=== PATIENT | female | born 1980 | race Caucasian/White ===

== ENCOUNTER 2016-11-20 23:32 | Inpatient (IN) | payer SELFPAY ==
[~2016-11-20] VITALS: Ht 157.5 cm; Wt 47.7 kg
[~2016-11-20 23:32] MED LIST: ALPR1TAB2 PO; BIOT25004 PO; BUPR1FIL SL; CLON1TAB PO; DICL50TA2 PO; DISU250T2 PO; FISH OIL PO; IBUP800T PO; LYSI500T11 PO; MULT-516 PO; NORCO PO; OXYC-302 PO; PROBIOTIC PO
[2016-11-21] MEDS ORDERED: NALOXONE 1 MG/ML, 2ML IVPush ONE (00:30)
[2016-11-21] MEDS ORDERED: SODIUM CHLORIDE 0.9% 1,000ML IVBOLUS ONE (00:30)
[2016-11-21 01:23] LABS: BLOOD UREA NITROGEN 14 mg/dL (7-18)
[2016-11-21 01:24] LABS: ACETAMINOPHEN < 2 mcg/mL (10-30)
[2016-11-21] MEDS ORDERED: POTASSIUM CHLORIDE 20 MEQ, MAGNESIUM SULFATE 2 GM, THIAMINE 100 MG, MVI ADULT 10 ML, FO... IV SCH (01:45)
[2016-11-21] MEDS ORDERED: ACETAMINOPHEN 325 MG TABLET PO PRN (02:00)
[2016-11-21] MEDS ORDERED: ONDANSETRON 2MG/ML, 2ML IVPush PRN (02:00)
[2016-11-21 02:08] LABS: DAU SCREEN DISCLAIMER
[2016-11-21] MEDS ORDERED: ENOXAPARIN 40 MG/0.4 ML ONE (02:25)
[2016-11-21] MEDS ORDERED: NS + 20MEQ KCL 1,000 ML IV ONE (02:25)
[2016-11-21] MEDS: ENOXAPARIN 40 MG/0.4 ML SQ SCH (02:29)
[2016-11-21] MEDS: NS + 20MEQ KCL 1,000 ML IV SCH ×2 (02:29→16:00)
[2016-11-21 03:05] VITALS: BP 102/66
[2016-11-21] MEDS: CEFTRIAXONE PMX 1GM/50ML 50 ML IV SCH (04:55)
[2016-11-21 07:55] VITALS: BP 103/68
[2016-11-21 13:44] VITALS: BP 109/73
[2016-11-21 19:30] VITALS: BP 112/75
[2016-11-22 02:28] VITALS: BP 95/59
[2016-11-22] MEDS: ENOXAPARIN 40 MG/0.4 ML SQ SCH (03:26)
[2016-11-22] MEDS: CEFTRIAXONE PMX 1GM/50ML 50 ML IV SCH (04:52)
[2016-11-22 06:03] LABS: ASPARTATE AMINO TRANSFERASE 25 U/L (15-37); BLOOD UREA NITROGEN 7 mg/dL (7-18)
[2016-11-22 08:00] VITALS: BP 116/78
[2016-11-22] MEDS ORDERED: MULTIVIT.W/IRON, MINERALS ORAL SOL PO SCH (11:00)
[2016-11-22] MEDS ORDERED: FOLIC ACID 1 MG TABLET PO SCH (11:00)
[2016-11-22] MEDS ORDERED: THIAMINE 100MG TABLET PO SCH (11:00)
[2016-11-22 14:00] VITALS: BP 106/62
== END 2016-11-22 15:17 | disposition left against medical advice (07) | DRG 917 ==
LOC: ED 23:57 → SUATTDRO 11-21 01:32 → EDIP 11-21 01:45 → 4WST 11-21 03:01
PROC: 0T9B70Z Drainage of Bladder with Drainage Device, Via Natural or Artificial Opening (ICD-10-PCS; principal; 2016-11-21)
DX: T40.1X1A Poisoning by heroin, accidental (unintentional), initial encounter (principal); G92 Toxic encephalopathy; J96.01 Acute respiratory failure with hypoxia; N39.0 Urinary tract infection, site not specified; F10.10 Alcohol abuse, uncomplicated; F19.10 Other psychoactive substance abuse, uncomplicated; G40.909 Epilepsy, unspecified, not intractable, without status epilepticus
CPT/HCPCS: 36415; 71010; 80048; 80053; 80307; 80329; 81001; 82040; 82607; 82746; 84443; 84703; 85025; 87077; 87086; 87186; 93005; 96361; 96372; 96374; 96375; J0696; J1650; J3411; J3475; J3480; J7042; G0480; J2310; J7030

== ENCOUNTER 2017-11-09 17:18 | Emergency (ER) | payer MEDICAID ==
[~2017-11-09] VITALS: Ht 152.4 cm; Wt 52.1 kg
[~2017-11-09 17:18] MED LIST changes: -BIOT25004 PO; +BIOT25005 PO; +IBUP-1223 PO; -IBUP800T PO; -LYSI500T11 PO; +LYSI500T25 PO
[2017-11-09] MEDS ORDERED: LORazepam 1MG TABLET ONE (17:42)
[2017-11-09] MEDS ORDERED: LORazepam 1MG TABLET PO ONE (18:00)
[2017-11-09] MEDS ORDERED: ACETAMINOPHEN 325 MG TABLET ONE (18:11)
[2017-11-09] MEDS ORDERED: ACETAMINOPHEN 325 MG TABLET PO ONE (18:30)
[2017-11-09 18:31] VITALS: BP 102/58
== END 2017-11-09 18:45 | disposition home or self-care (01) ==
LOC: ED 18:39
DX: S00.12XA Contusion of left eyelid and periocular area, initial encounter (principal); H11.32 Conjunctival hemorrhage, left eye; F41.9 Anxiety disorder, unspecified; F10.10 Alcohol abuse, uncomplicated; F17.210 Nicotine dependence, cigarettes, uncomplicated; F19.10 Other psychoactive substance abuse, uncomplicated; Y04.0XXA Assault by unarmed brawl or fight, initial encounter; Y93.89 Activity, other specified; Y92.89 Other specified places as the place of occurrence of the external cause; Y99.8 Other external cause status
CPT/HCPCS: 70450; 70486; 99284